=== PATIENT | female | born 1980 | race Caucasian/White ===

== ENCOUNTER → 2024-10-29 | Outpatient (CLI) | payer OTHER, SELFPAY ==
[2024-10-29 12:35] LABS: Absolute Lymphocyte Count 2.38 X10^3/uL (0.83-4.51); Basophil# 0.03 X10^3/uL; Basophil% 0.4 % (0-1); Eosinophils% 2.9 % (0-5); Hemoglobin 13.5 g/dL (12.0-15.0); Lymphocyte # 2.38 X10^3/ul (0.83-4.51); Lymphocyte % 34.9 % (19-41); Mean Corp Hgb Conc 33.8 g/dL (32-36); Mean Corpuscular Hgb 28.9 pg (27.0-32.0); Mean Corpuscular Volume 85.7 fL (81-99); Mean Platelet Vol. 10.2 fl (6.2-12.0); Monocyte# 0.24 X10^3/uL; Monocyte% 3.5 % (0-10); NRBC Flagged by Analyzer 0 % (0-5); Neutrophil # 3.95 X10^3/uL (2.7-7.7); Platelet Count 219 K/mm3 (150-450); RBC Distribution Width CV 13.2 % (11.6-14.6); Red Blood Count 4.67 M/mm3 (4.2-5.4); White Blood Count 6.8 K/mm3 (4.4-11.0)
[2024-10-29 14:14] LABS: Hemoglobin A1c 5.2 % (<=5.6)
[2024-10-30 12:09] LABS: ALB/GLOB Ratio 1.4 RATIO (0.9-2.4); AST(SGOT) 17 U/L (<=31); Alanine Aminotransfer ALT/SGPT 9 U/L (<=34); Albumin, Serum 4.3 g/dL (3.5-5.0); Alkaline Phosphatase 94 U/L (35-104); Anion Gap 10 (5-15); BUN 9 mg/dL (4-19); BUN/Creat Ratio 12.6 RATIO (10-20); Calcium,Total 9.2 mg/dL (7.6-11.0); Carbon Dioxide 24.3 mmol/L (21.0-32.0); Chloride 104 mmol/L (98-108); Cholesterol 70 mg/dL (<=200); Creatinine, Serum 0.73 mg/dL (0.70-1.20); EST Glomerular Filtration Rate 104 (>60); Glucose 86 mg/dL (70-99); High Density Lipoprotein 56 mg/dL; Low Density Lipoprotein Calc. -8 mg/dL; Potassium 4.3 mmol/L (3.3-5.1); Protein, Total 7.3 g/dL (5.9-8.4); Sodium Level 138 mmol/L (133-145); Total Bilirubin 0.39 mg/dL (0.00-1.30); Triglycerides 111 mg/dL; Very Low Density Lipoprotein 22 mg/dL (5-40); cholesterol:hdl ratio screen 1.25
== END | disposition home or self-care (01) ==
LOC: VSLAB 12:19
PROVIDERS: PCP Nurse Practitioner Family; Visit Provider Nurse Practitioner Family
DX: I10 Essential (primary) hypertension (principal); E55.9 Vitamin D deficiency, unspecified; Z13.1 Encounter for screening for diabetes mellitus
CPT/HCPCS: 36415; 80053; 80061; 82306; 83036; 84443; 85025